=== PATIENT | male | born 1980 | race Caucasian/White ===

== ENCOUNTER 2018-12-14 12:17 | Emergency (ER) | payer SELFPAY ==
[~2018-12-14] VITALS: Ht 182.9 cm; Wt 104.3 kg
--- NOTE | 2018-12-14 12:26 | NUR ---
BIB [employer], FOUND SLEEPY IN [facility], ADMITS TO HEROIN, REC'D 2MG NARCAN IV, NO CHANGE A/OX4 BUT SOMEWHAT SLEEPY. STATED SI WITHOUT PLAN. BGL=58, TO ER BED 13, HOOKED TO MONITOR, CHANGED TO MD MARGARITA AT BEDSIDE
[2018-12-14] MEDS ORDERED: HALOPERIDOL LACTATE INJ 5 MG/ML VIAL IM ONE (12:30)
[2018-12-14] MEDS ORDERED: HALOPERIDOL LACTATE INJ 5 MG/ML VIAL ONE (12:33)
--- NOTE | 2018-12-14 12:36 | NUR ---
PT REFUSES TO PROVIDE URINE SAMPLE. MADE MD AWARE
--- NOTE | 2018-12-14 12:50 | NUR ---
SERVED WITH LUNCH TRAY, REFUSED TO EAT
--- NOTE | 2018-12-14 12:54 | NUR ---
REFUSED BLOOD DRAW, AWARE
--- NOTE | 2018-12-14 14:16 | NUR ---
DR RICHARDS AT BED SIDE FOR RE-EVALUATION. PT AGGRESIVELY STATES "THAT HE NO LONGER WANTS TO STAY HERE AND WOULD LIKE TO GO". PT IS HOMELESS SO PLACEMENT/RESOURCES WERE OFFERED BY MD AND EMT. PT DENIED HELP ON BOTH ACCOUNTS AND WISHES TO LEAVE. PT VERBALIZED TO MD THAT HE DOES NOT HAVE ANY SUICIDAL OR HOMICIDAL IDEATION. IV REMOVED AND PT LEFT WITH WARM BLANKETS.
--- NOTE | 2018-12-14 14:45 | NUR ---
Patient discharged to home in stable condition. Written and verbal after care instructions given. Patient verbalizes understanding of instruction.
[2018-12-14 15:03] VITALS: BP 100/66
== END 2018-12-14 15:04 | disposition home or self-care (01) ==
LOC: ER 12:18
DX: G92 Toxic encephalopathy (principal); Z59.0 Homelessness
CPT/HCPCS: 96372; 99283; A4606; J1630; Z7610

== ENCOUNTER 2018-12-14 16:02 | Emergency (ER) | payer SELFPAY ==
[~2018-12-14] VITALS: Ht 180.3 cm; Wt 104.3 kg
[2018-12-14] MEDS ORDERED: Thiamine 100 MG/ML VIAL ONE ×2 (16:16→17:48)
--- NOTE | 2018-12-14 16:17 | NUR ---
BIBRA 839, HE WAS AT [facility] ASSISTED BY BYSTANDARDS FROM [place]. HE WAS HOLDING ON THE SHOPPING CART, WAS D/C HERE AN HOUR AGO. PT CAN BE COMBATIVE AT TIMES AND PERSISTENTLY YELLS. AOX2, AMB, VSS, RR EVEN AND UNLABORED. NO ACUTE DISTRESS NOTED. SKIN INTACT. READY FOR EVAL. WILL CONT TO MONITOR.
[2018-12-14] MEDS ORDERED: IV NS 0.9% 1,000 ML BAG IV ONE (16:30)
[2018-12-14] MEDS ORDERED: Thiamine 100 MG in IV D5W 50 ML IV SCH ×2 (16:30→17:30)
--- NOTE | 2018-12-14 16:30 | NUR ---
RESTRAINTS APPLIED PER MD ORDER. CMS INTACT. WILL REASSESS [id number] PER PROTOCOL
[2018-12-14 16:47] LABS: CALCIUM, SERUM 8.4 mg/dL (8.5-10.1); CREATININE 0.4 mg/dL (0.6-1.3); POTASSIUM 2.9 mmol/L (3.5-5.1)
[2018-12-14 16:53] LABS: BILIRUBIN,DIRECT 0.1 mg/dL (0.0-0.2); BILIRUBIN,TOTAL 0.2 mg/dL (0.2-1.0); TOTAL PROTEIN, SERUM 6.8 g/dL (6.4-8.2)
[2018-12-14 16:56] LABS: BASOPHILS % (AUTO) 0.6 % (0.0-2.0); EOSINOPHILS % (AUTO) 0.3 % (0.0-6.0); HEMATOCRIT 52 % (39-51); HEMOGLOBIN 17.3 g/dL (13.5-17.5); LYMPHOCYTES # (AUTO) 1.9 /CMM (0.8-4.8); LYMPHOCYTES % (AUTO) 24.5 % (20.0-44.0); MEAN CORPUSCULAR HGB CONC 34 g/dl (31.0-36.0); MEAN CORPUSCULAR VOLUME 94 fL (80-96); MONOCYTES # (AUTO) 0.5 /CMM (0.1-1.30); NEUTROPHILS # (AUTO) 5.2 /CMM (1.8-8.9); NEUTROPHILS % (AUTO) 68.6 % (43.0-81.0); PLATELET COUNT (AUTO) 273 /CMM (150-450); RED BLOOD CELL COUNT(AUTO) 5.45 MIL/uL (4.5-6.0); WHITE BLOOD COUNT (AUTO) 7.6 K/uL (4.3-11.0)
--- NOTE | 2018-12-14 18:05 | NUR ---
RESTRAINTS REMOVED PER MD. PT SLEEPING COMFORTABLY. NO COMPLAINTS AT THIS TIME. WILL CONT TO MONITOR.
[2018-12-14] MEDS ORDERED: POTASSIUM CHLORIDE 20 MEQ TAB.PRT.SR PO ONE ×2 (19:29→19:30)
--- NOTE | 2018-12-14 20:15 | NUR ---
Patient is resting comfortably in bed with eyes closed. Easily aroused. VSS
--- NOTE | 2018-12-14 22:25 | NUR ---
Patient is resting comfortably in bed with eyes closed. Easily aroused. VSS. NO COMPLAINTS AT THIS TIME. REQUESTING WATER
--- NOTE | 2018-12-15 00:42 | NUR ---
PT RESTING COMFORTABLY IN BED. DOZING INTERMITTENTLY, EASILY AROUSABLE. VITAL SIGNS STABLE. WILL CONTINUE TO MONITOR
--- NOTE | 2018-12-15 03:46 | NUR ---
PT RESTING COMFORTABLY IN BED. EASILY AROUSABLE. VITAL SIGNS STABLE. NO ACUTE DISTRESS NOTED. WILL CONTINUE TO MONITOR
--- NOTE | 2018-12-15 06:09 | NUR ---
PT RESTING COMFORTABLY IN BED. DOZING INTERMITTENTLY, EASILY AROUSABLE. AAOX4. VITAL SIGNS STABLE. NO ACUTE DISTRESS NOTED. PT RECEIVED MILK AND WATER PER REQUEST. WILL CONTINUE TO MONITOR
[2018-12-15 06:10] VITALS: BP 122/56
--- NOTE | 2018-12-15 07:31 | NUR ---
CALLED AND LEFT A MESSAGE FOR DIETARY FOR REG DIET BREAKFAST.
--- NOTE | 2018-12-15 09:32 | NUR ---
PT ELOPED BEFORE HEALTH PROGRAM SPECIALIST WAS ABLE TO ASSESS HIM. ERMD AND CHARGE NURSE AWARE.
== END 2018-12-15 09:35 | disposition left against medical advice (07) ==
LOC: ER 16:03
DX: R41.82 Altered mental status, unspecified (principal); F10.129 Alcohol abuse with intoxication, unspecified; Z59.0 Homelessness; Y90.8 Blood alcohol level of 240 mg/100 ml or more
CPT/HCPCS: 36415; 80048; 80076; 82140; 85025; 85730; 96365; 96366; 99283; A4606; G0480; J3411 ×2; J7030; J7060 ×2; Z7610

== ENCOUNTER 2019-04-10 20:50 | Emergency (ER) | payer OTHER ==
[~2019-04-10] VITALS: Ht 177.8 cm; Wt 90.7 kg
[2019-04-10 20:54] VITALS: BP 120/78
== END 2019-04-10 21:25 | disposition home or self-care (01) ==
LOC: ER 20:52
DX: F10.10 Alcohol abuse, uncomplicated (principal); F11.10 Opioid abuse, uncomplicated; Z59.0 Homelessness

== ENCOUNTER 2019-10-20 13:36 | Emergency (ER) | payer OTHER ==
[~2019-10-20] VITALS: Ht 177.8 cm; Wt 76.2 kg
--- NOTE | 2019-10-20 13:45 | NUR ---
SEEN AND EXAMINED BY .
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
--- NOTE | 2019-10-20 13:52 | NUR ---
ER PHLEB AT BEDSIDE FOR BLOOD DRAW.
[2019-10-20 13:56] LABS: BASOPHILS # (AUTO) 0.1 /CMM (0.0-0.2); BASOPHILS % (AUTO) 1.3 % (0.0-2.0); EOSINOPHILS % (AUTO) 1.7 % (0.0-6.0); HEMATOCRIT 45 % (39-51); HEMOGLOBIN 14.8 g/dL (13.5-17.5); LYMPHOCYTES # (AUTO) 1.5 /CMM (0.8-4.8); LYMPHOCYTES % (AUTO) 22.8 % (20.0-44.0); MEAN CORPUSCULAR HGB CONC 33 g/dl (31.0-36.0); MEAN CORPUSCULAR VOLUME 89 fL (80-96); MONOCYTES # (AUTO) 0.3 /CMM (0.1-1.30); MONOCYTES % (AUTO) 4.7 % (2.0-12.0); NEUTROPHILS # (AUTO) 4.6 /CMM (1.8-8.9); NEUTROPHILS % (AUTO) 69.5 % (43.0-81.0); PLATELET COUNT (AUTO) 259 /CMM (150-450); RED BLOOD CELL COUNT(AUTO) 5.05 MIL/uL (4.5-6.0); WHITE BLOOD COUNT (AUTO) 6.7 K/uL (4.3-11.0)
[2019-10-20 14:04] LABS: CALCIUM, SERUM 9.2 mg/dL (8.5-10.1); CREATININE 0.4 mg/dL (0.6-1.3); POTASSIUM 2.8 mmol/L (3.5-5.1)
[2019-10-20 14:10] LABS: ALBUMIN 3.4 g/dL (3.4-5.0); BILIRUBIN,DIRECT 0.1 mg/dL (0.0-0.2); BILIRUBIN,TOTAL 0.3 mg/dL (0.2-1.0); TOTAL PROTEIN, SERUM 7.3 g/dL (6.4-8.2)
--- NOTE | 2019-10-20 14:10 | NUR ---
URINE SPECIMEN COLLECTED AND SENT TO LAB.
[2019-10-20 14:19] LABS: SALICYLATE 2.2 mg/dL (2.8-20.0)
[2019-10-20 14:27] LABS: APPEARANCE,URINE Clear (CLEAR); BILIRUBIN,URINE Negative (NEGATIVE); BLOOD, URINE Negative Ery/uL (NEGATIVE); COLOR,URINE Yellow (YELLOW); KETONES,URINE Negative (NEGATIVE); LEUKOCYTE ESTERASE ,URINE Negative (NEGATIVE); NITRITE, URINE Negative (NEGATIVE); PROTEIN,URINE Negative (NEGATIVE); UGLUCOSE Negative (NEGATIVE); UROBILINOGEN,URINE 0.2 EU/dL (0.2)
[2019-10-20] MEDS ORDERED: POTASSIUM CHLORIDE 20 MEQ TAB.PRT.SR PO ONE ×3 (14:30→15:00)
[2019-10-20] MEDS ORDERED: diphenhydrAMINE HCL 50 MG/ML VIAL ONE (15:29)
[2019-10-20] MEDS ORDERED: diphenhydrAMINE HCL 50 MG/ML VIAL IM ONE (15:30)
[2019-10-20] MEDS ORDERED: HALOPERIDOL LACTATE INJ 5 MG/ML VIAL ONE ×2 (15:30→17:58)
[2019-10-20] MEDS ORDERED: LORAZEPAM INJ 2 MG/ML VIAL IM ONE (15:30)
[2019-10-20] MEDS ORDERED: LORAZEPAM INJ 2 MG/ML VIAL ONE (15:30)
[2019-10-20] MEDS ORDERED: HALOPERIDOL LACTATE INJ 5 MG/ML VIAL IM ONE (18:00)
--- NOTE | 2019-10-20 20:00 | NUR ---
PT AWAKE, AAOX4. CALM AND COOPERATIVE. DENIES SI/HI AT THIS TIME. VITAL SIGNS STABLE. NO ACUTE DISTRESS NOTED AT THIS TIME. MD VALDIVIA
--- NOTE | 2019-10-20 20:40 | NUR ---
DISEASE CASE MANAGER AT BEDSIDE FOR REDRAW
[2019-10-20 20:57] LABS: POTASSIUM 3.5 mmol/L (3.5-5.1)
--- NOTE | 2019-10-20 21:36 | NUR ---
PT DOZING INTERMITTENTLY. UNABLE TO AMBULATE WITH STEADY GAIT. VITAL SIGNS STABLE. WILL CONT TO MONITOR
--- NOTE | 2019-10-20 22:42 | NUR ---
Patient given written and verbal discharge instructions. Patient verbalizes understanding of instructions. Patient is ambulatory with steady gait. Refuses offer of assisted placement. Patient given list of available shelters in surrounding area. Arm band removed. Pt provided with resources, food, and water prior to discharge. Pt wearing appropriate clothes for discharge.
[2019-10-20 22:43] VITALS: BP 132/84
[2019-10-21 08:06] LABS: HIV SCRN 4G wRFX Non Reactive (Non Reactive)
== END 2019-10-20 22:46 | disposition home or self-care (01) ==
LOC: ER 13:38
DX: R45.851 Suicidal ideations (principal); E87.6 Hypokalemia; F19.10 Other psychoactive substance abuse, uncomplicated; F10.10 Alcohol abuse, uncomplicated; Z59.0 Homelessness; Y90.8 Blood alcohol level of 240 mg/100 ml or more
CPT/HCPCS: 36415; 80048; 80076; 80305; 80307 ×2; 80329; 81001; 83735; 84132; 85025; 86706; 86803; 87340; 87389; 96372 ×2; 99284; G0480; J1200; J1630; J2060; 81000-TC

== ENCOUNTER 2020-01-11 12:39 | Emergency (ER) | payer OTHER ==
[~2020-01-11] VITALS: Ht 170.2 cm; Wt 72.6 kg
--- NOTE | 2020-01-11 12:56 | NUR ---
ABSCESS TO RIGHT THIGH X 3 DAYS, WARM AND REDNESS. STATES PAIN LEVEL 5/10. NO EVIDENCE OF DISCHARGE. DENIES DIZZINESS, WEAKNESS. AMBULATORY WITH STEADY GAIT. AOX4, VSS, RR EVEN AND UNLABORED. NO ACUTE DISTRESS NOTED. SKIN WARM, DRY, INTACT. PT IS HOMELESS. READY FOR EVAL.
[2020-01-11] MEDS ORDERED: CEPHALEXIN MONOHYDRATE 500 MG CAPSULE PO ONE ×2 (13:00→13:11)
[2020-01-11] MEDS ORDERED: SULFAMETH/TRIMETH 800/160 MG 1 UDTAB TABLET PO ONE (13:00)
[2020-01-11] MEDS ORDERED: IBUPROFEN 600 MG TABLET PO ONE ×2 (13:00→13:11)
[2020-01-11] MEDS ORDERED: SULFAMETH/TRIMETH 800/160 MG 1 UDTAB TABLET ONE (13:11)
--- NOTE | 2020-01-11 13:20 | NUR ---
REQUESTED TAP CARD
--- NOTE | 2020-01-11 13:22 | NUR ---
CALLED DIETARY FOR FOOD TRAY
--- NOTE | 2020-01-11 13:30 | NUR ---
PT PROVIDED FOOD TRAY
[2020-01-11 13:56] VITALS: BP 180/87
--- NOTE | 2020-01-11 13:56 | NUR ---
Patient discharged to home in stable condition. Written and verbal after care instructions given. Patient verbalizes understanding of instruction.
== END 2020-01-11 13:56 | disposition home or self-care (01) ==
LOC: ER 12:39
DX: L03.115 Cellulitis of right lower limb (principal); F19.90 Other psychoactive substance use, unspecified, uncomplicated; F10.10 Alcohol abuse, uncomplicated; F11.10 Opioid abuse, uncomplicated; Y90.9 Presence of alcohol in blood, level not specified; Z59.0 Homelessness

== ENCOUNTER 2020-01-13 16:16 | Inpatient (IN) | payer OTHER ==
[~2020-01-13] VITALS: Ht 170.2 cm; Wt 72.6 kg
[~2020-01-13 16:16] MED LIST: CEFEPIME 2 GM in IV D5W 100 ML IV SCH
--- NOTE | 2020-01-13 16:20 | NUR ---
WHEELED HIMSELF IN FOR RE-EVAL OF HIS RIGHT THIGH CELLULITIS SEEN HERE 2 DAYS AGO. PATIENT A/OX4, BREATHING EVEN AND UNLABORED, NO SOB NOTED, KEPT COMFORTABLE.
[2020-01-13] MEDS ORDERED: METH10TA2 PO (16:39)
--- NOTE | 2020-01-13 16:52 | NUR ---
SUBMITTED MOVE SHEET TO ADMITTING AND CALLED FOR BED
[2020-01-13] MEDS ORDERED: KETOROLAC TROMETHAMINE 15 MG/ML VIAL ONE (16:58)
[2020-01-13 17:00] LABS: BASOPHILS % (AUTO) 0.2 % (0.0-2.0); EOSINOPHILS % (AUTO) 0.3 % (0.0-6.0); HEMATOCRIT 38 % (39-51); HEMOGLOBIN 12.5 g/dL (13.5-17.5); LYMPHOCYTES # (AUTO) 1.3 /CMM (0.8-4.8); LYMPHOCYTES % (AUTO) 10.1 % (20.0-44.0); MEAN CORPUSCULAR HGB CONC 33 g/dl (31.0-36.0); MEAN CORPUSCULAR VOLUME 88 fL (80-96); MONOCYTES # (AUTO) 0.8 /CMM (0.1-1.30); MONOCYTES % (AUTO) 6.6 % (2.0-12.0); NEUTROPHILS # (AUTO) 10.3 /CMM (1.8-8.9); NEUTROPHILS % (AUTO) 82.8 % (43.0-81.0); PLATELET COUNT (AUTO) 357 /CMM (150-450); RED BLOOD CELL COUNT(AUTO) 4.35 MIL/uL (4.5-6.0); WHITE BLOOD COUNT (AUTO) 12.5 K/uL (4.3-11.0)
[2020-01-13] MEDS ORDERED: KETOROLAC TROMETHAMINE INJ 30 MG/ML VIAL IV ONE (17:00)
[2020-01-13] MEDS ORDERED: CEFEPIME 1 GM in IV D5W 50 ML IV ONE (17:00)
[2020-01-13] MEDS ORDERED: VANCOMYCIN 1 GM in IV D5W 250 ML IV ONE (17:00)
[2020-01-13] MEDS ORDERED: IV NS 0.9% 500 ML BAG IV ONE (17:00)
--- NOTE | 2020-01-13 17:06 | NUR ---
PATIENT REFUSED TORADOL DR. HILL MADE AWARE.
[2020-01-13 17:11] LABS: CALCIUM, SERUM 9.4 mg/dL (8.5-10.1); CREATININE 0.3 mg/dL (0.6-1.3); POTASSIUM 4.7 mmol/L (3.5-5.1)
[2020-01-13 17:17] LABS: ALBUMIN 2.8 g/dL (3.4-5.0); BILIRUBIN,DIRECT 0.2 mg/dL (0.0-0.2); BILIRUBIN,TOTAL 0.6 mg/dL (0.2-1.0); TOTAL PROTEIN, SERUM 7.7 g/dL (6.4-8.2)
--- NOTE | 2020-01-13 17:18 | NUR ---
PT CAME IN USING A WHEELCHAIR. BUT PT IS ABLE TO WALK WITH A STEADY GAIT. VSS. NO ACUTE DISTRESS NOTED.
--- NOTE | 2020-01-13 17:19 | NUR ---
POLE SHAVER/MED-RECON UNABLE TO VERIFY MEDICATION INFORMATION AT THIS TIME D/T CLINIC CLOSED AT 1400. TIMOTHY FAXED TO [facility] (TEL# [phone] FAX# [phone]) PER PATIENT REQUESTED. PATIENT AND PRIMARY NURSE AWARE.
--- NOTE | 2020-01-13 17:47 | NUR ---
BED 203
--- NOTE | 2020-01-13 17:58 | NUR ---
RECEIVED AUTHORIZATION TO STAY FOR INPATIENT ADMISSION FROM [facility].
--- NOTE | 2020-01-13 18:04 | NUR ---
PATIENT GIVEN FOOD. RESTING AT THE MOMENENT. VSS.
--- NOTE | 2020-01-13 18:20 | NUR ---
REPORT GIVEN TO MIRA JOHN FOR REINALDO
[2020-01-13] MEDS ORDERED: MAGNESIUM HYDROXIDE 30 ML UDC PO PRN (18:30)
[2020-01-13] MEDS ORDERED: ACETAMINOPHEN 325 MG TABLET PO PRN (18:30)
[2020-01-13] MEDS ORDERED: CEFEPIME 1 GM in IV NS 0.9% 50 ML IV SCH (18:30)
[2020-01-13] MEDS ORDERED: ONDANSETRON HCL/PF 4 MG/2 ML VIAL IVP PRN (18:30)
[2020-01-13] MEDS ORDERED: MAG HYDROX/AL HYDROX/SIMETH 30 ML UDC PO PRN (18:30)
[2020-01-13] MEDS ORDERED: Z GUARD REMEDY 2 OZ OINT TP PRN (18:30)
--- NOTE | 2020-01-13 18:57 | NUR ---
PT TRANSFERED PER ACLS PROTOCOL
[2020-01-13 19:00] VITALS: BP 105/62
--- NOTE | 2020-01-13 19:00 | NUR ---
MS RN NOTE RECEIVED PATIENT FROM ER BY RODRIGUEZ. PATIENT IN BED RESTING COMFORTABLY. PATIENT IN NO ACUTE DISTRESS. NO SOB NOTED. PATIENT BREATHING IS EVEN AND UNLABORED. PATIENT VITAL SIGNS WNL. PATIENT BED IS LOCKED AND IN LOWEST POSITION. CALL LIGHT WITHIN REACH. SAFETY PRECAUTIONS IN PLACE. WILL ENDORSE ADMISSION TO PM SHIFT FOR REINALDO.
[2020-01-13] MEDS ORDERED: FEE PK DOSING 1 MIN EA MC ONE (19:09)
--- NOTE | 2020-01-13 19:30 | NUR ---
MS RN ADMITTING NOTES PATIENT RESTING COMFORTABLY IN BED; VITAL SIGNS WNL. NO SOB. BREATHING EVEN AND UNLABORED; NO S/S OF ACUTE RESPIRATORY DISTRESS NOTED; R AC #20 INTACT AND PATENT; NO S/S OF REDNESS OR INFILTRATION; PATIENT REFUSING SKIN ASSESSMENTS; SAFETY PRECAUTIONS IN PLACE; BED LOCKED IN LOW POSITION; SIDE RAILS X2; CALL LIGHT WITHIN REACH; WILL CONTINUE TO MONITOR
[2020-01-13 20:00] VITALS: BP 105/52
[2020-01-13 20:25] VITALS: BP 105/52
--- NOTE | 2020-01-13 22:26 | NUR ---
MS RN NOTES ATTEMPTED SKIN ASSESSMENT; PATIENT STILL REFUSED; PATIENT DID NOT WANT TO BE BOTHERED; PATIENT VERBALIZED HE WANTED TO REST; WILL TRY AGAIN LATER
[2020-01-13] MEDS: HYDROCODONE/APAP 5/325MG 1 EACH TABLET PO PRN (23:46)
--- NOTE | 2020-01-13 23:54 | NUR ---
MS RN NOTES PATIENT AWAKE, A/O X3; PATIENT VERY AGITATED AND UPSET D/T PAIN; NORCO ADMINISTERED; PATIENT ONLY ALLOWED FOR R LEG ASSESSMENT; PICTURE TAKEN AND FILED IN PATIENT BINDER; DR. KYE BABB AWARE; ORDERED ATIVAN AND AMBIEN FOR PATIENT; WILL CONTINUE TO MONITOR;
[2020-01-14] MEDS: ZOLPIDEM TARTRATE 5 MG TABLET PO PRN (00:07)
[2020-01-14] MEDS: VANCOMYCIN 1.25 GM in IV D5W 250 ML IV SCH ×3 (00:09→16:41)
[2020-01-14] MEDS: CEFEPIME 2 GM in IV D5W 100 ML IV SCH ×2 (04:00→16:05)
--- NOTE | 2020-01-14 06:35 | NUR ---
WOUND CARE CONSULT WOUND CARE RECEIVED CONSULT FOR CELLULITIS. PT IS SLEEPING AT THIS TIME. PER PHOTO IMAGE AND PRIMARY NURSE DISCUSSION, PATIENT HAS RIGHT THIGH ABSCESS. CT SCAN PENDING. WOUND CARE WILL DEFER TO PRIMARY MD TO CALL SURGEON TECHNICAL ANALYST IF NEEDED. PATIENT WITH AVILA AT 19, WOUND CARE WILL SEE PRN. RECOMMEND CLEANSE WITH NS, PAT DRY, COVER WITH MEPILEX FOAM AND SECURE WITH BURN NETTING UNTIL SEEN BY SURGEON.
--- NOTE | 2020-01-14 06:41 | NUR ---
MS RN CLOSING NOTES PATIENT SLEEPING IN BED COMFORTABLY; NO SOB; NO S/S OF ACUTE RESPIRATORY DISTRESS NOTED; PATIENT TOLERATING ROOM AIR WELL; R UPPER THIGH WOUND COVERED WITH GAUZE; R AC #20 SL INTACT AND PATENT; FLUSHING WELL; NO S/S OF REDNESS OR INFILTRATION NOTED; LABOR RELATIONS TEACHER STOPPED BY; ASKED LABOR RELATIONS TEACHER TO RETURN AT A LATER TIME WHEN PATIENT IS AWAKE; LABOR RELATIONS TEACHER WILL COME BACK 0800; WILL INFORM ONCOMING SHIFT; ALL NEEDS RENDERED; SAFETY PRECAUTIONS IN PLACE; BED LOCKED IN LOW POSITION; CALL LIGHT WITHIN REACH; WILL ENDORSE CONTINUITY OF CARE TO ONCOMING SHIFT.
[2020-01-14] MEDS: HYDROCODONE/APAP 5/325MG 1 EACH TABLET PO PRN ×2 (07:09→19:38)
[2020-01-14] MEDS: LORAZEPAM 1 MG TABLET PO PRN (07:09)
--- NOTE | 2020-01-14 07:14 | NUR ---
MS RN NOTES RECEIVED PT IN HIS ROOM AGITATED AND VERBALLY ABUSIVE, SAME SCREAMING FOR HIS PAIN MEDICATION. NIGHT NURSE DARION IN HIS ROOM GIVING NORCO AND ATIVAN AT THIS TIME. SECURITY WAS CALLED EARLIER AND HE'S OUTSIDE PT'S ROOM. ON ROOM AIR, TOLERATING WELL WITH NO SOB NOTED. IV SL ON RAC G#20 INTACT AND PATENT. CALL LIGHT WITHIN REACH. WILL CONTINUE TO MONITOR PT ACCORDINGLY.
--- NOTE | 2020-01-14 07:15 | NUR ---
MS RN NOTES PATIENT IN DISTRESS; VERY AGITATED AND UPSET D/T PAIN; PATIENT IS THROWING THINGS INSIDE ROOM; NORCO AND ATIVAN ADMINISTERED ORDERED; WILL ENDORSE REINALDO TO ONCOMING SHIFT
--- NOTE | 2020-01-14 09:58 | NUR ---
RN NOTES CALLED [facility] REGARDING PT'S MEDICATION INFORMATION. SPOKE TO LIZZ AND SAID THAT THEY WILL SENT THE INFORMATION. WILL F/U.
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
[2020-01-14] MEDS ORDERED: IV NS 0.9% 250 ML IV ONE (14:00)
[2020-01-14] MEDS ORDERED: CT SWABBABLE VALVE TRANS SET 1 EA INFUS.SET MC ONE (14:00)
[2020-01-14] MEDS ORDERED: IOHEXOL-300 100 ML VIAL IV ONE (14:00)
[2020-01-14] MEDS: METHADONE HCL 10 MG TABLET PO SCH (14:03)
--- NOTE | 2020-01-14 14:08 | NUR ---
RN NOTES PT FOR CT OF RIGHT EXTREMITY WITH CONTRAST, PROCEDURE EXPLAINED TO PT AND VERBALIZED UNDERSTANDING. CONSENT SIGNED. CALLED [employer] GRINDER OPERATOR TO COME AND PICK-UP PT.
--- NOTE | 2020-01-14 14:13 | NUR ---
RN NOTES PT WHEELED VIA HIS BED TO CT ROOM.
[2020-01-14 15:34] LABS: BASOPHILS % (AUTO) 0.2 % (0.0-2.0); EOSINOPHILS % (AUTO) 0.3 % (0.0-6.0); HEMATOCRIT 35 % (39-51); HEMOGLOBIN 11.5 g/dL (13.5-17.5); LYMPHOCYTES % (AUTO) 7.9 % (20.0-44.0); MEAN CORPUSCULAR HGB CONC 33 g/dl (31.0-36.0); MEAN CORPUSCULAR VOLUME 88 fL (80-96); MONOCYTES # (AUTO) 1.1 /CMM (0.1-1.30); MONOCYTES % (AUTO) 8.3 % (2.0-12.0); NEUTROPHILS # (AUTO) 10.8 /CMM (1.8-8.9); NEUTROPHILS % (AUTO) 83.3 % (43.0-81.0); PLATELET COUNT (AUTO) 352 /CMM (150-450); RED BLOOD CELL COUNT(AUTO) 4.03 MIL/uL (4.5-6.0)
[2020-01-14 15:46] LABS: CALCIUM, SERUM 8.7 mg/dL (8.5-10.1); CREATININE 0.4 mg/dL (0.6-1.3); MAGNESIUM 1.9 mg/dL (1.8-2.4); PHOSPHORUS 3.9 mg/dL (2.5-4.9); POTASSIUM 3.8 mmol/L (3.5-5.1)
--- NOTE | 2020-01-14 19:01 | NUR ---
MS RN CLOSING NOTES PT RESTING IN BED AT THIS TIME. A/O X3. ABLE TO VERBALIZED NEEDS AND CONCERNS. ON ROOM AIR, TOLERATING WELL WITH NO SOB NOTED. IV SL ON RAC G#20 INTACT, PATENT AND FLUSHES WELL. SAFETY MEASURES IN PLACE: BED IN LOWEST LOCKED POSITION WITH SR UP X2. CALL LIGHT WITHIN REACH. ALL NEEDS AND CARE ATTENDED WELL. WILL ENDORSE TO OPTICAL STORE MANAGER NURSE FOR REINALDO
[2020-01-14 20:00] VITALS: BP 111/67
[2020-01-14] MEDS ORDERED: LORAZEPAM INJ 2 MG/ML VIAL IV ONE (20:00)
--- NOTE | 2020-01-14 20:00 | NUR ---
MS RN NOTE: PATIENT RESTING IN BED, COMPLAINS OF PAIN AND REQUESTED FOR PAIN MEDICATIONS. NORCO 5/325MG 1 TAB ORAL GIVEN PER MD ORDER, BUT PATIENT GOT UPSET THAT IT WAS NOT ENOUGH PAIN MEDICATION. PATIENT GOT UP AND THROW HIS DINNER TRAY ONTO THE FLOOR. JASBIR BHANDARI CALLED AND SECURITY ARRIVED TO FLOOR. TRIED TO CALM PATIENT DOWN. CONTACTED SENIOR BUDGET ANALYST MD AND RECEIVED ORDER FOR ATIVAN 2MG IV ONCE. ORDER NOTED AND CARRIED OUT. ATIVAN 2MG IV GIVEN PER MD ORDER. EVS CALLED TO CLEAN ROOM. WILL CONTINUE TO MONITOR.
--- NOTE | 2020-01-14 21:30 | NUR ---
MS RN NOTE: PATIENT NOW CALM AND SLEEPING, NO ACUTE DISTRESS NOTED. BREATHING EVEN AND UNLABORED, NO SOB NOTED. BED LOCKED AND IN LOWEST POSITION, CALL LIGHT IN REACH. WILL CONTINUE TO MONITOR.
[2020-01-14] MEDS ORDERED: ZOLPIDEM TARTRATE 5 MG TABLET PO PRN (23:00)
[2020-01-15] MEDS: VANCOMYCIN 1.25 GM in IV D5W 250 ML IV SCH ×3 (00:54→17:11)
[2020-01-15] MEDS: HYDROCODONE/APAP 5/325MG 1 EACH TABLET PO PRN ×2 (01:34→15:18)
[2020-01-15] MEDS: LORAZEPAM 1 MG TABLET PO PRN ×2 (01:34→15:17)
--- NOTE | 2020-01-15 01:40 | NUR ---
MS RN NOTE: PATIENT ANXIOUS AND YELLING FOR PAIN MEDICATION. NORCO 5/325MG 1 TAB ORAL GIVEN PER MD ORDER. ATIVAN 2MG ORAL GIVEN PER MD ORDER. WILL CONTINUE TO MONITOR.
[2020-01-15] MEDS: CEFEPIME 2 GM in IV D5W 100 ML IV SCH ×2 (04:57→16:36)
--- NOTE | 2020-01-15 06:40 | NUR ---
MS RN NOTE: PATIENT SLEEPING IN BED, NO ACUTE DISTRESS NOTED. BREATHING EVEN AND UNLABORED, NO SOB NOTED. IV TO RAC IN PLACE. BED LOCKED AND IN LOWEST POSITION, CALL LIGHT IN REACH. WILL ENDORSE TO DAY NURSE TO CONTINUE WITH PLAN OF CARE.
--- NOTE | 2020-01-15 07:00 | NUR ---
MS RN OPENING NOTES PT RECEIVED ASLEEP IN BED, EASILY AROUSABLE. HOB ELEVATED. ON ROOM AIR, RESPIRATION ARE EVEN AND UNLABORED. IV SL ON RAC G#20 INTACT AND PATENT. CALL LIGHT WITHIN REACH. WILL CONTINUE TO MONITOR PT ACCORDINGLY.
[2020-01-15 08:00] VITALS: BP 120/70
[2020-01-15] MEDS: METHADONE HCL 10 MG TABLET PO SCH (09:12)
--- NOTE | 2020-01-15 09:12 | NUR ---
RN NOTES/PAIN MANAGEMENT PATIENT IN BED SCREAMING AND COMPLAINING OF PAIN ON HIS RIGHT THIGH WOUND/ABSCESS WITH SCALE OF 10/10, METHADONE 40MG PO GIVEN ORDERED. WILL CONTINUE TO MONITOR AND REASSESS PT.
--- NOTE | 2020-01-15 15:24 | NUR ---
RN NOTES PT GRIMACING AND SCREAMING IN PAIN TO HIS RIGHT THIGH WOUND/ABSCESS 6/10 SCALE. PRN NORCO 5/325 MG PO GIVEN AT 1518. WILL CONTINUE TO MONITOR AND REASSESS PT.
--- NOTE | 2020-01-15 18:42 | NUR ---
MS RN CLOSING NOTES PT AWAKE AND RESTING IN BED AT THIS TIME. A/O X3. ABLE TO MAKE NEEDS KNOWN. NEEDS. CALM AND QUIET AT THIS TIME. ON ROOM AIR, TOLERATING WELL WITH NO SOB NOTED. IV SL ON RAC G#20 INTACT, PATENT AND FLUSHES WELL. SAFETY MEASURES IN PLACE: BED IN LOWEST LOCKED POSITION WITH SR UP X2. CALL LIGHT WITHIN REACH. ALL NEEDS AND CARE ATTENDED WELL. WILL ENDORSE TO FILLER LEAF CUTTER LONG NURSE FOR REINALDO
--- NOTE | 2020-01-15 19:30 | NUR ---
MS2/RN RECEIVED PATIENT SLEEPING, APPEAR COMFORTABLE, NO SIGNS OF DISTRESS NOTED, CALL LIGHT IN REACH. WILL TAKE VITAL SIGNS WHEN PATIENT IS AWAKE, PATIENT IS VERY AGITATED AND COMBATIVE WHEN AWAKENED FROM SLEEP. WILL MONITOR.
[2020-01-16] MEDS: HYDROCODONE/APAP 5/325MG 1 EACH TABLET PO PRN ×5 (01:15→19:08)
[2020-01-16] MEDS: VANCOMYCIN 1.25 GM in IV D5W 250 ML IV SCH ×4 (01:27→17:58)
[2020-01-16] MEDS: ZOLPIDEM TARTRATE 5 MG TABLET PO PRN ×2 (01:50→21:01)
--- NOTE | 2020-01-16 03:43 | NUR ---
MS/RN PATIENT WOKE UP AT ABOUT 0100H, SCREAMING FOR PAIN MED, NORCO 1 TAB PO WAS GIVEN ORDERED. PATIENT WAS STILL AWAKE AT AROUND 0150 AND AGITATED ASKING FOR AMBIEN, AMBIEN 5 MG PO WAS GIVEN ORDERED. PRESENTLY, PATIENT IS SLEEPING, EASILY AROUSABLE, NO DISTRESS NOTED, WILL CONTINUE TO MONITOR.
[2020-01-16] MEDS: CEFEPIME 2 GM in IV D5W 100 ML IV SCH ×2 (05:10→17:08)
--- NOTE | 2020-01-16 06:09 | NUR ---
MS2/RN PATIENT IS SLEEPING AT THIS TIME, APPEAR COMFORTABLE, NO SIGNS OF DISTRESS NOTED, CALL LIGHT IN REACH, ALL NEEDS ATTENDED AT THIS TIME, WILL CONTINUE TO MONITOR.
--- NOTE | 2020-01-16 07:30 | NUR ---
RN OPENING NOTES PATIENT RECEIVED ASLEEP IN BED, EASILY AROUSABLE. A/OX3, ABLE TO MAKE NEEDS KNOWN. HOB ELEVATED. ON ROOM AIR, RESPIRATION ARE EVEN AND UNLABORED. NOT IN ANY FORM OF DISTRESS. IV ACCESS INTACT AND PATENT. BED IN LOW/LOCKED POSITION, SIDERAILS UPX2, CALL LIGHT WITHIN REACH. WILL CONTINUE TO MONITOR PT ACCORDINGLY.
[2020-01-16 08:00] VITALS: BP 137/82
[2020-01-16] MEDS: METHADONE HCL 10 MG TABLET PO SCH (09:20)
[2020-01-16] MEDS ORDERED: LIDOCAINE 1%-EPI 1:100,000 20 ML VIAL TP ONE (09:30)
--- NOTE | 2020-01-16 10:00 | NUR ---
PATIENT REFUSED BLOOD DRAW. EXPLAINED RISKS AND BENEFITS BUT STILL REFUSED AND YELLED "NO!". DR GRAJEDA IS AWARE.
--- NOTE | 2020-01-16 10:57 | NUR ---
Dr Mendiola at bedside. checked the wound, wound was self draining, aspirated drainage manually, specimen collected for cultures.
[2020-01-16 16:00] VITALS: BP 139/88
--- NOTE | 2020-01-16 17:58 | NUR ---
RN NOTES: REFUSED VANCOMYCIN PATIENT IV ACCESS FOUND REMOVED FROM PATIENT HAND. PATIENT DIDNT KNOW WHAT HAPPENED. ATTEMPTED TO INSERT A NEW IV ACCESS BUT PATIENT REFUSED TO INSERT A NEW IV LINE. EXPLAINED TO THE PATIENT TAHT HE NEEDS THE IV FOR ANTIBIOTIC TREATMENT AND HE IS DUE FOR VANCOMYCIN. PATIENT REFUSED AND YELLED "I DONT CARE! YOU'RE NOT GONNA POKE ME AGAIN!!". Addendum: 01/16/20 at 1850 by MARY TAFOYA IV CATHETER TIP INTACT. PATIENT REFUSED ARM TO BE CHECKED, SAYING "IM OKAY MAN". NO BLEEDING NOTED.
--- NOTE | 2020-01-16 19:26 | NUR ---
RN CLOSING NOTES PATIENT IN STABLE CONDITION. ALL NEEDS ATTENDED AND PROVIDED. ALL DUE MEDS GIVEN ORDERED. ASSISTED WITH ADLS. KEPT PATIENT SAFE AND COMFORTABLE. BED IN LOW,LOCKED POSITION. SIDERAILS UPX2, CALL LIGHT IN REACH. ENDORSED ACCORDINGLY.
--- NOTE | 2020-01-16 20:11 | NUR ---
MS RN NOTES PATIENT AWAKE AND CALM IN BED WITH NO DISTRESS NOTED. CALL LIGHT WITHIN REACH. NO FURTHER C/O PAIN OR DISCOMFORT. PATIENT REFUSES PIV REINSERTION AND IV ATB TX DESPITE CONTINUED ENCOURAGEMENT AND EXPLANATION OF RISKS/BENEFITS. BED IN LOW LOCK SETTING. ROOM FREE OF CLUTTER AND BELONGINGS KEPT NEAR BEDSIDE. WILL CONTINUE TO MONITOR
[2020-01-16 21:17] VITALS: BP 99/61
[2020-01-17] MEDS: VANCOMYCIN 1.25 GM in IV D5W 250 ML IV SCH ×3 (00:30→18:10)
[2020-01-17] MEDS: CEFEPIME 2 GM in IV D5W 100 ML IV SCH ×2 (05:00→17:21)
--- NOTE | 2020-01-17 06:36 | NUR ---
MS RN NOTES PATIENT ASLEEP IN BED WITH NO DISTRESS NOTED. CALL LIGHT WITHIN REACH. NO FURTHER C/O PAIN OR DISCOMFORT. NO BEHAVIORAL EPISODES NOTED DURING SHIFT. BED IN LOW LOCK SETTING. ROOM FREE OF CLUTTER AND BELONGINGS KEPT NEAR BEDSIDE. WILL ENDORSE TO ONCOMING SHIFT.
[2020-01-17] MEDS: HYDROCODONE/APAP 5/325MG 1 EACH TABLET PO PRN ×3 (07:21→17:22)
[2020-01-17 08:00] VITALS: BP 107/63
--- NOTE | 2020-01-17 08:00 | NUR ---
RN NOTES RECEIVED PATIENT IN THE BED , A/O X3/4 MEDICATION WERE ADMINISTERED FOR PAIN EFFECTIVE, V/S STABLE,. PATIENT UNKEMPT, VERBALLY ABUSIVE, USING URINAL, SAFETY PRECAUTION MAINTAINED ALL TH TIME.
[2020-01-17] MEDS: METHADONE HCL 10 MG TABLET PO SCH (08:44)
--- NOTE | 2020-01-17 10:42 | NUR ---
RN NOTES PATIENT SIGN CONSENT FORM FOR DEBRIDEMENT RIGHT UPPER THIGH, DEBRIDEMENT DONE BY JIMBO SKINNER, INFUSING VANCOMYCIN 125 MG /ML IV ON RIGHT UPPER ARM. CALL LIGHT WITHIN TO REACH, SAFETY PRECAUTION MAINTAINED ALL THE TIME.
--- NOTE | 2020-01-17 11:36 | NUR ---
RN NOTES ADMINISTERED NARCO 5/325 MG PO PRN FOR RIGHT THIGH PAIN 07/10 PER PATIENT REQUEST, V/S TAKEN BP 116/78, R-19, P-78, CONTINUED MONITORING.
[2020-01-17 14:57] LABS: BASOPHILS # (AUTO) 0.1 /CMM (0.0-0.2); BASOPHILS % (AUTO) 0.8 % (0.0-2.0); EOSINOPHILS % (AUTO) 3.3 % (0.0-6.0); HEMATOCRIT 38 % (39-51); HEMOGLOBIN 12.3 g/dL (13.5-17.5); LYMPHOCYTES # (AUTO) 1.8 /CMM (0.8-4.8); LYMPHOCYTES % (AUTO) 24.6 % (20.0-44.0); MEAN CORPUSCULAR HGB CONC 33 g/dl (31.0-36.0); MEAN CORPUSCULAR VOLUME 88 fL (80-96); MONOCYTES # (AUTO) 0.6 /CMM (0.1-1.30); MONOCYTES % (AUTO) 8.6 % (2.0-12.0); NEUTROPHILS # (AUTO) 4.6 /CMM (1.8-8.9); NEUTROPHILS % (AUTO) 62.7 % (43.0-81.0); PLATELET COUNT (AUTO) 435 /CMM (150-450); RED BLOOD CELL COUNT(AUTO) 4.29 MIL/uL (4.5-6.0); WHITE BLOOD COUNT (AUTO) 7.3 K/uL (4.3-11.0)
[2020-01-17 15:19] LABS: CALCIUM, SERUM 9.1 mg/dL (8.5-10.1); CREATININE 0.3 mg/dL (0.6-1.3); POTASSIUM 4.2 mmol/L (3.5-5.1)
[2020-01-17 16:00] VITALS: BP 101/62
[2020-01-17] MEDS: DAKINS QUARTER STRENGTH (0.125%) 480 ML BOTTLE TOP SCH (17:21)
--- NOTE | 2020-01-17 17:22 | NUR ---
RN NOTES ADMINISTERED NARCO 5/325 MG PO PRN FOR RIGHT THIGH PAIN 07/10 PER PATIENT REQUEST, V/S TAKEN BP-101/62, P-58, CONTINUED MONITORING.
[2020-01-17] MEDS: LORAZEPAM 1 MG TABLET PO PRN (18:17)
--- NOTE | 2020-01-17 18:17 | NUR ---
RN NOTES ADMINISTERED ATIVAN 2 MG PO PRN FOR ANXIETY PER PATIENT REQUEST, V/S WNL BP 106/65, P-60. CALL LIGHT WITHIN TO REACH. ENDORSED ONCOMING NURSE FOLLOW PLAN OF CARE.
--- NOTE | 2020-01-17 18:45 | NUR ---
RN NOTES MEDICATION WERE ADMINISTERED FOR ANXIETY EFFECTIVE, PATIENT CALM ,COOPERATIVE. INFUSING VANCOMYCIN 125 ML/HR INTACT ON RIGHT UA. ENDORSED ONCOMING NURSE FOLLOW PLAN OF CARE.
[2020-01-17] MEDS: NICOTINE PATCH (21MG) 21 MG PATCH.TD24 TD SCH (19:03)
--- NOTE | 2020-01-17 19:29 | NUR ---
MS RN OPENING NOTES PATIENT RECEIVED RESTING IN BED, A/O X 4. STABLE ON RA WITH BREATHING EVEN AND UNLABORED, NO SOB NOTED. NO SIGNS OF ACUTE DISTRESS. NO COMPLAINTS OF PAIN OR DISCOMFORT AT THE MOMENT. IV LOCATED ON TON #22 PATENT AND INTACT. SAFETY PRECAUTIONS IN PLACE WITH BED IN LOWEST POSITION, CALL LIGHT WITHIN REACH, SIDE RAILS UP, BREAKS ON. WILL CONTINUE TO MONITOR THROUGHOUT THE NIGHT.
[2020-01-17] MEDS ORDERED: MORPHINE SULFATE INJ 2 MG/ML DISP.SYRIN IVP ONE (20:00)
[2020-01-17 20:28] VITALS: BP 99/60
--- NOTE | 2020-01-17 21:10 | NUR ---
MS RN NOTES PATIENT STILL COMPLAINING OF 10/10 BURNING ACHING THROBBING PAIN ON RIGHT THIGH. NORCO WAS GIVEN 2 HOURS AGO, BUT PATIENT STILL FEELING PAIN AND REQUESTING FOR MORE PAIN MEDICATION. MD PIERRE NOTIFIED AND HE ORDERED MORPHINE 2MG IVP ONCE NOW.
[2020-01-18] MEDS: VANCOMYCIN 1.25 GM in IV D5W 250 ML IV SCH ×3 (00:01→09:29)
[2020-01-18] MEDS: CEFEPIME 2 GM in IV D5W 100 ML IV SCH (04:20)
[2020-01-18] MEDS: HYDROCODONE/APAP 5/325MG 1 EACH TABLET PO PRN ×4 (04:30→18:50)
[2020-01-18] MEDS: LORAZEPAM 1 MG TABLET PO PRN ×2 (04:48→17:38)
--- NOTE | 2020-01-18 06:46 | NUR ---
MS RN CLOSING NOTES PATIENT CURRENTLY RESTING IN BED A/O X 4. STABLE ON RA WITH BREATHING EVEN AND UNLABORED, NO SOB NOTED. NO SIGNS OF ACUTE DISTRESS. NO COMPLAINTS OF PAIN OR DISCOMFORT AT THE MOMENT. IV LOCATED ON R UA #22 SL. PATIENT WAS KEPT CLEAN AND DRY THROUGHOUT THE WHOLE NIGHT. ALL NEEDS ATTENDED TO. SAFETY PRECAUTIONS IN PLACE WITH BED IN LOWEST POSITION, CALL LIGHT WITHIN REACH BREAKS, ON ,AND SIDE RAILS UP X2. WILL ENDORSE TO ONCOMING SHIFT ABOUT REINALDO.
--- NOTE | 2020-01-18 08:00 | NUR ---
RN NOTES RECEIVED PATIENT IN THE BED , A/O X3/4, REDIRECTABLE, V/S STABLE. PATIENT UNKEMPT, VERBALLY ABUSIVE, REFUSED WEAR GOWN USING. INFUSING VANCOMYCIN 125 ML/HR RIGHT UA INTACT, USING URINAL, SAFETY PRECAUTION MAINTAINED ALL TH TIME.
[2020-01-18] MEDS: NICOTINE PATCH (21MG) 21 MG PATCH.TD24 TD SCH (08:20)
[2020-01-18] MEDS: METHADONE HCL 10 MG TABLET PO SCH (08:21)
[2020-01-18] MEDS: DAKINS QUARTER STRENGTH (0.125%) 480 ML BOTTLE TOP SCH (08:24)
--- NOTE | 2020-01-18 10:35 | NUR ---
rn notes administered narco 5/325 mg po prn for right thigh pain 07/10 per patient request, patient refused v/s to be taken.
--- NOTE | 2020-01-18 13:31 | NUR ---
RN NOTES rn notes administered narco 5/325 mg po prn two tabs for right thigh pain 08/10 per patient request, v/s taken bp 101/61, p-63, continued monitoring.
[2020-01-18] MEDS ORDERED: HYDROCODONE/APAP 5/325MG 1 EACH TABLET PO PRN (14:30)
--- NOTE | 2020-01-18 17:38 | NUR ---
rn notes administered ativan 2 mg po prn for anxiety per patient request, v/s taken- bp-105/60, p-68.
--- NOTE | 2020-01-18 18:13 | NUR ---
RN NOTES UNABLE TO INSERT IV ACCESS, CALLED AND NOTIFIED PHARMACY UNABLE TO ADMINISTERED IV MEDICATION, PATIENT REFUSED MIDLINE INSERTION.
[2020-01-18 18:43] LABS: CALCIUM, SERUM 9.3 mg/dL (8.5-10.1); CREATININE 0.5 mg/dL (0.6-1.3); PHOSPHORUS 4.2 mg/dL (2.5-4.9); POTASSIUM 4.4 mmol/L (3.5-5.1)
--- NOTE | 2020-01-18 18:50 | NUR ---
rn notes ADMINISTERED NARCO 5/325 TWO TABS FPR RIGHT THIGH PAIN 8/10 PER PATIENT REQUEST, V/S TAKEN BP 100/61, P-63, CALL LIGHT WITHIN TO REACH. ENDORSED ONCOMING NURSE FOLLOW PLAN OF CARE.
--- NOTE | 2020-01-18 19:00 | NUR ---
MS RN NOTE RECEIVED PT IN STABLE CONDITION A/O X4, NOTED IN BED. YELLING AND DISRESPECTFUL TOWARD DAYSHIFT NURSE. NO SIGNS OF SOB OR DISTRESS, NO C/O PAIN OR N/V. CURRENTLY NO IV LINE, DAYSHIFT NURSE TO TRY TO REPLACE BEFORE LEAVING. ALL CURRENT NEEDS ATTENDED TO. BED LOW, LOCKED, UPPER RAILS UP, AND CALL LIGHT WITHIN REACH. WILL CONT. TO MONITOR.
[2020-01-18 19:07] LABS: BASOPHILS % (AUTO) 0.6 % (0.0-2.0); EOSINOPHILS % (AUTO) 3.3 % (0.0-6.0); HEMATOCRIT 42 % (39-51); HEMOGLOBIN 13.6 g/dL (13.5-17.5); LYMPHOCYTES # (AUTO) 2.3 /CMM (0.8-4.8); MEAN CORPUSCULAR HGB CONC 32 g/dl (31.0-36.0); MEAN CORPUSCULAR VOLUME 89 fL (80-96); MONOCYTES # (AUTO) 0.3 /CMM (0.1-1.30); MONOCYTES % (AUTO) 4.9 % (2.0-12.0); NEUTROPHILS # (AUTO) 3.9 /CMM (1.8-8.9); NEUTROPHILS % (AUTO) 57.2 % (43.0-81.0); PLATELET COUNT (AUTO) 481 /CMM (150-450); RED BLOOD CELL COUNT(AUTO) 4.74 MIL/uL (4.5-6.0); WHITE BLOOD COUNT (AUTO) 6.9 K/uL (4.3-11.0)
[2020-01-18 20:00] VITALS: BP 116/79
[2020-01-18] MEDS: ZOLPIDEM TARTRATE 5 MG TABLET PO PRN (20:57)
[2020-01-18] MEDS: SULFAMETH/TRIMETH 800/160 MG 1 UDTAB TABLET PO SCH (20:57)
[2020-01-19] MEDS: HYDROCODONE/APAP 5/325MG 1 EACH TABLET PO PRN ×2 (03:21→13:56)
--- NOTE | 2020-01-19 06:27 | NUR ---
MS RN NOTE PT REMAINS IN STABLE CONDITION A/O X4, NOTED IN BED.NO SIGNS OF SOB OR DISTRESS, NO C/O PAIN OR N/V. ALL CURRENT NEEDS ATTENDED TO. BED LOW, LOCKED, UPPER RAILS UP, AND CALL LIGHT WITHIN REACH. WILL CONT. TO MONITOR AND ENDORSE TO NEXT SHIFT FOR REINALDO.
--- NOTE | 2020-01-19 07:27 | NUR ---
MS RN OPENING NOTES PATIENT RECEIVED ASLEEP IN BED. EASILY AROUSABLE. ON ROOM AIR, BREATHING EVEN AND UNLABORED, NO SOB NOTED. SAFETY PRECAUTIONS IN PLACE: BED IN LOWEST LOCK POSITION, CALL LIGHT WITHIN REACH, SIDE RAILS UP. WILL CONTINUE TO MONITOR.
[2020-01-19] MEDS: NICOTINE PATCH (21MG) 21 MG PATCH.TD24 TD SCH (08:51)
[2020-01-19] MEDS: SULFAMETH/TRIMETH 800/160 MG 1 UDTAB TABLET PO SCH (08:52)
[2020-01-19] MEDS: METHADONE HCL 10 MG TABLET PO SCH (09:00)
[2020-01-19] MEDS: DAKINS QUARTER STRENGTH (0.125%) 480 ML BOTTLE TOP SCH (09:00)
--- NOTE | 2020-01-19 09:10 | NUR ---
RN NOTES PT WANTED TO SMOKE, SMOKING CONSENT SIGNED. PT WENT OUT TO SMOKE ACCOMPANIED BY MANAGER HIGHWAY.
[2020-01-19] MEDS: LORAZEPAM 1 MG TABLET PO PRN (09:43)
--- NOTE | 2020-01-19 09:51 | NUR ---
RN NOTES WOUND TREATMENT ON RIGHT THIGH DONE ORDERED. PT VERY ANXIOUS, PRN ATIVAN 2MG PO GIVEN AT 0943. WILL CONTINUE TO MONITOR
[2020-01-19 12:07] VITALS: BP 107/70
--- NOTE | 2020-01-19 13:58 | NUR ---
RN NOTES/PAIN MANAGEMENT PATIENT IN BED AND C/O PAIN ON HIS RIGHT THIGH WOUND WITH SCALE OF 6/10, NORCO 5/325 X2 TABS PO GIVEN AT 1356. WILL CONTINUE TO MONITOR AND REASSESS PT.
[2020-01-19 14:02] LABS: CALCIUM, SERUM 8.5 mg/dL (8.5-10.1); CREATININE 0.4 mg/dL (0.6-1.3); PHOSPHORUS 4.2 mg/dL (2.5-4.9); POTASSIUM 4.6 mmol/L (3.5-5.1)
[2020-01-19 14:18] LABS: BASOPHILS % (AUTO) 0.5 % (0.0-2.0); EOSINOPHILS % (AUTO) 4.6 % (0.0-6.0); HEMATOCRIT 35 % (39-51); HEMOGLOBIN 11.7 g/dL (13.5-17.5); LYMPHOCYTES # (AUTO) 2.1 /CMM (0.8-4.8); MEAN CORPUSCULAR HGB CONC 33 g/dl (31.0-36.0); MEAN CORPUSCULAR VOLUME 87 fL (80-96); MONOCYTES # (AUTO) 0.6 /CMM (0.1-1.30); MONOCYTES % (AUTO) 8.4 % (2.0-12.0); NEUTROPHILS # (AUTO) 3.7 /CMM (1.8-8.9); NEUTROPHILS % (AUTO) 55.5 % (43.0-81.0); PLATELET COUNT (AUTO) 469 /CMM (150-450); RED BLOOD CELL COUNT(AUTO) 4.07 MIL/uL (4.5-6.0); WHITE BLOOD COUNT (AUTO) 6.7 K/uL (4.3-11.0)
[2020-01-19] MEDS ORDERED: METHADONE HCL 10 MG TABLET PO ONE (15:45)
[2020-01-19] MEDS ORDERED: SULF1TAB48 PO (16:43)
--- NOTE | 2020-01-19 18:07 | NUR ---
RN DISCHARGED NOTES PT IS A/O X4 AND SAME ABLE TO MAKE NEEDS KNOWN AND MEDICALLY STABLE TO BE DISCHARGED. [facility] TO [facility] BUT REFUSED TO GO THERE DESPITE SEVERAL ATTEMPTS TO CONVINCED AND EDUCATE BENEFITS OF GOING THERE AND RISKS TO BE IN THE STREET. 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 HE STILL PREFERS TO GO ON THE STREET. PT SIGNED HOMELESS WAIVER FORM AND FILED IN HIS CHART. PT ALSO REFUSED TO BE TAUGHT ON HOW TO DO WOUND TREATMENTS ON HIS RIGHT THIGH WOUND AND SAME REFUSED TO TAKE PHOTO OF HIS WOUND. NAME ARM BAND REMOVED. PT HAS NO IV ACCESS. EDUCATED ON SMOKING CESSATION AND DISCHARGED INSTRUCTIONS GIVEN, HE VERBALIZED UNDERSTANDING. PT SIGNED DISCHARGED PAPERS AND HOMELESS WAIVER FORM BUT REFUSED TO TAKE EXIT FOLDER ON DISCHARGE. HE JUST TOOK PRESCRIPTION FOR ANTIBIOTIC BACTRIM PO. ALL BELONGINGS ACCOUNTED FOR AND SIGNED FORM. PT LEFT UNIT AT 1730 VIA WHEELCHAIR ACCOMPANIED BY ISABELLE BOOTH TO LOBBY. TAP CARD WAS GIVEN. KELL MELO AWARE OF DISCHARGE.
== END 2020-01-19 17:30 | disposition home or self-care (01) | DRG 364 ==
LOC: ER 16:20 → MEDSG2 18:26
PROVIDERS: ADMIT Family Medicine; ATTEND Family Medicine
PROC: 0KBS0ZZ Excision of Right Lower Leg Muscle, Open Approach (ICD-10-PCS; principal; 2020-01-17)
DX: L03.115 Cellulitis of right lower limb (principal); E44.0 Moderate protein-calorie malnutrition; L02.415 Cutaneous abscess of right lower limb; E87.1 Hypo-osmolality and hyponatremia; Z59.0 Homelessness; E86.1 Hypovolemia; F19.10 Other psychoactive substance abuse, uncomplicated; F10.10 Alcohol abuse, uncomplicated; Y90.9 Presence of alcohol in blood, level not specified; D63.8 Anemia in other chronic diseases classified elsewhere; Z72.0 Tobacco use; Z91.19 Patient's noncompliance with other medical treatment and regimen; Z83.3 Family history of diabetes mellitus; Z82.69 Family history of other diseases of the musculoskeletal system and connective tissue
CPT/HCPCS: 36415; 73701-TC; 80048-TC; 80061-TC; 80076-TC; 80202-TC; 83690-TC; 83735-TC; 84100-TC; 85025-TC; 85730-TC; 87040-TC; 87070-TC; 87081-TC; A4216; A6253; A6403; A6407; G0378; J0692; J1885; J2060; J2270; J3370; J3490; J7040; J7050; J7060; Q9967